=== PATIENT | female | born 1995 | race Caucasian/White ===

== ENCOUNTER 2025-03-18 12:54 | Emergency (ER) | payer MEDICAID ==
[~2025-03-18] VITALS: Ht 170.2 cm; Wt 157.9 kg
[2025-03-18 13:16] VITALS: BP 159/87; PULSE 95; RESP 18; TEMP 96.6; O2SAT 96
[2025-03-18] MEDS ORDERED: CHLO118M PO (14:28)
[2025-03-18] MEDS ORDERED: IBUP-1984 PO (14:28)
[2025-03-18] MEDS ORDERED: AMOX-580 PO (14:28)
--- NOTE | 2025-03-18 14:28 | Physician Documentation ---
HPI ~ General Chief Complaint: Tooth Problem Stated Complaint: TOOTH ABSCESS Time Seen by MD: 14:09 History of Present Illness HPI Comment 30-year-old female presents to the emergency department with suspected right lower dental infection with facial cellulitis. Patient reports symptoms have been present for nearly a week. Pain is at times [id number] severity. She reports she needs to follow up with a dentist. No reported fever, other recent illness or injury. Medication Reconciliation Allergies: Coded Allergies: sulfamethoxazole (Unverified Allergy, Unknown, 03/18/25) trimethoprim (Unverified Allergy, Unknown, 03/18/25) Scheduled Amox Tr/Potassium Clavulanate 875/125 MG (Augmentin 875/125 MG), 1 TAB PO BID Chlorhexidine Gluconate (Peridex), 15-30 ML PO Q8H Ibuprofen* (Motrin*), 800 MG PO Q8H Review of Systems All Other Systems at this time: Reviewed and Negative Constitutional: Denies: fever ENT Right lower dental pain facial swelling Physical Exam Vital Signs: RN Vital Signs have been reviewed: Yes, Temperature: 96.6, Source: Temporal, Heart Rate: 95, Respiratory Rate: 18, BP: 159/87, Pulse Oximetry: 96, Weight: 157.900 Oxygen Flow Rate: 0 General Appearance: alert, WD/WN, mild distress Teeth/Gums: carious (Tooth number 28 and 29 with decay without periodontal abscess) Face: swelling, tender Head: normal inspection Neck: non-tender Respiratory: lungs clear Cardiovascular: normal peripheral pulses Skin: normal color, other (Mild induration without erythema to the right lower jaw without lymphadenopathy) Neurologic: oriented x4, surgical dressing maker II-XII nml as tested Psychiatric: normal mood/affect Progress Results/Orders Results/Orders Vital Signs 03/18/25 13:16 Temp 96.6 Pulse 95 Resp 18 B/P (MAP) 159/87 Pulse Ox 96 O2 Flow Rate 0 Medical Decision Making Additional information obtaine: family Findings Examination history consistent with right lower dental infection causing facial cellulitis with no obvious periapical abscess or periodontal abscess. We will begin Augmentin, Peridex and provide ibuprofen for pain management. Patient understands that follow up with a dentist for definitive management. No clinical suspicion for angioedema and/or Antonio's angina. Differential Dx:Considerations: Include: Alveolar fracture, Alveolar osteitis, Facial Cellulitis (Working diagnosis due to dental Kat), Peridontal abscess Departure Disposition: HOME / SELF CARE / HOMELESS Impression: Primary Impression: Toothache Additional Impression: Dental caries Condition: Stable Discharge Instructions: Dental Caries, Adult Additional Instructions: Please begin medication as directed and follow up with the Dentist. Referrals: NO PRIMARY CARE PROVIDER (PCP) Prescriptions Chlorhexidine Gluconate (Peridex) 0.12 % Mouthwash 15-30 ML PO Q8H for 8 Days, #473 ML 0 Refills Prov: ANDRA BRUSH 03/18/25 Amox Tr/Potassium Clavulanate 875/125 MG (Augmentin 875/125 MG) 875 Mg-125 Mg Tablet 1 TAB PO BID, #20 TAB Prov: ANDRA BRUSH 03/18/25 Ibuprofen* (Motrin*) 400 Mg Tablet 800 MG PO Q8H for 10 Days, #30 TAB Prov: ANDRA BRUSH 03/18/25 Education Educated: Patient Educated regarding: diagnosis, treatment, prognosis, need for follow up (Dentist) Signature Scribe Signature: . Attestation: ANDRA VASQUEZ Mar 18, 2025 14:28
== END 2025-03-18 14:53 | disposition home or self-care (01) ==
LOC: ER 12:55
DX: K02.9 Dental caries, unspecified (principal); Z88.1 Allergy status to other antibiotic agents; Z88.2 Allergy status to sulfonamides
CPT/HCPCS: 99283